=== PATIENT | female | born 1985 | race Caucasian/White ===

== ENCOUNTER 2020-01-15 22:58 | Emergency (ER) | payer BC ==
[~2020-01-15] VITALS: Ht 154.9 cm; Wt 65.3 kg
[~2020-01-15 22:58] MED LIST: ETHI1TAB
[2020-01-15 23:00] VITALS: BP 140/97
--- NOTE | 2020-01-15 23:05 | NUR ---
PT AMBULATED TO ER BED 4 W/ STEADY GAIT.
[2020-01-15 23:10] VITALS: BP 140/97
--- NOTE | 2020-01-15 23:11 | NUR ---
PATIENT LEFT WITHOUT BEING SEEN BY DR. ZULUAGA. NO FURTHER CARE PROVIDED FOR PATIENT.
== END 2020-01-15 23:11 | disposition left against medical advice (07) ==
LOC: MED 22:58
DX: R07.0 Pain in throat (principal); Z53.21 Procedure and treatment not carried out due to patient leaving prior to being seen by health care provider